=== PATIENT | female | born 1990 | race Hispanic/Latino ===

== ENCOUNTER 2017-07-04 14:18 | Emergency (ER) | payer MEDICARE, OTHER ==
[~2017-07-04] VITALS: Ht 160 cm; Wt 56.7 kg
[2017-07-04] MEDS ORDERED: ASPIRIN 325 MG TAB PO ONE (15:00)
[2017-07-04] MEDS ORDERED: NITROGLYCERIN 2% OINT 1 GM PKT TOP ONE (15:00)
[2017-07-04 15:04] LABS: BILIRUBIN,URINE NEGATIVE (NEGATIVE); CLARITY,URINE CLOUDY (CLEAR); COLOR,URINE YELLOW (YELLOW); KETONES,URINE NEGATIVE (NEGATIVE); LEUKOCYTE ESTERASE ,URINE 1+ (NEGATIVE); NITRITE,URINE NEGATIVE (NEGATIVE); PROTEIN,URINE DIPSTICK 2+ (NEGATIVE); URINE UROBILINOGEN 0.2 mg/dL (0.2 - 1)
[2017-07-04 15:21] LABS: BACTERIA,URINE MODERATE /HPF; EPITHELIAL CELLS,URINE MANY /LPF; RBC,URINE 0-5 /HPF (0-5)
--- NOTE | 2017-07-04 15:23 | Diagnostic Imaging Report ---
PROCEDURE: X-RAY CHEST, TWO VIEWS COMPARISON: None. INDICATIONS: CHEST PAIN FINDINGS: LUNGS: Well-inflated. No mass or infiltrate.The pulmonary vascular markings are normal. PLEURA: No effusions or pneumothorax. HEART \T\ MEDIASTINUM: The heart is top normal in size. No hilar lymphadenopathy. BONES \T\ SOFT TISSUES: No focal osseous lesions. The soft tissues are unremarkable. CONCLUSION: No acute cardiopulmonary process. Dictated by: Richar Marie M.D. on 07/04/2017 at 15:31 Electronically approved by: Richar Marie M.D. on 07/04/2017 at 15:31
[2017-07-04 15:25] LABS: RENAL EPITHELIAL CELLS,URINE MODERATE; TRANSITIONAL EPI CELLS,URINE MODERATE
== END 2017-07-04 21:00 | disposition short-term general hospital (02) ==
LOC: ER 14:18
DX: R07.89 Other chest pain (principal)
CPT/HCPCS: 71020; 81001; 87086; 93005